=== PATIENT | male | born 1980 | race Caucasian/White ===

== ENCOUNTER 2025-03-14 23:02 | Emergency (ER) | payer OTHER ==
[2025-03-14] MEDS ORDERED: NA CHLORIDE 0.9% 1,000 ML ONE (23:57)
[2025-03-15 00:22] LABS: Absolute Eosinophils 0.1 K/uL (0-0.5); Absolute Lymphocytes (CBC) 2.3 K/uL (0.7-4.9); Absolute Monocytes 0.8 K/uL (0.1-1.3); Absolute Neutrophil 4.6 K/uL (1.8-8.0); Basophils % 0.3 % (0-1.3); Eosinophils % 1.2 % (0-4.4); Hemoglobin 14.7 g/dL (13.6-17.9); Lymphocytes % 29.8 % (15.3-44.8); MCH 32.9 pg (27.0-35.0); MCHC 34.2 g/dL (32.0-36.0); MCV 96.3 fL (80-100); MPV 8.9 fL (7.6-11.3); Monocytes % 10.6 % (3.3-12.3); Neutrophils % 58.1 % (41.7-73.7); Platelets 156 thou/uL (152-406); RBC Red Blood Cell Count 4.46 M/uL (4.33-5.43); Red Cell Distribution Width 13.7 % (12.1-15.2)
[2025-03-15] MEDS ORDERED: POTASSIUM 25 MEQ EFFERV TAB ONE (00:38)
[2025-03-15 00:41] LABS: Specific Gravity 1.023 (1.005-1.030); Sqamous Epithelial None Seen /HPF (None Seen); Urine Bacteria None Seen /HPF (<20); Urine Bilirubin NEGATIVE (Negative); Urine Blood Negative (Negative); Urine Clarity Extremely Turbid (Clear); Urine Color Yellow (Yellow); Urine Culture Reflex Order NOT NEEDED; Urine Glucose NEGATIVE (Negative); Urine Ketones TRACE (Negative); Urine Microscopic Reflex YN ORDER UMIC; Urine Nitrite NEGATIVE (Negative); Urine Protein NEGATIVE (Negative); Urine RBC None Seen /HPF (None Seen); Urine Urobilinogen 2+ (Normal); Urine WBC None Seen /HPF (<5)
--- NOTE | 2025-03-15 01:02 | ER ---
Nurse's Notes [facility] Name: Edmond Amaya Age: 44 yrs Sex: Male : 1980 Arrival Date: 03/14/2025 Time: 23:02 Bed 16 Private MD: Diagnosis: Hypokalemia Presentation: 03/14 23:03 Chief complaint: EMS states: [facility], pain with cp4 urination, and foot locking up. Coronavirus screen: Client denies travel out of the [place] in the last 14 days. At this time, the client does not indicate any symptoms associated with coronavirus-19. Ebola Screen: Patient negative for fever greater than or equal to 101.5 degrees Fahrenheit, and additional compatible Ebola Virus Disease symptoms Patient denies exposure to infectious person. Patient denies travel to an Ebola-affected area in the 21 days before illness onset. No symptoms or risks identified at this time. Initial Sepsis Screen: Does the patient meet any 2 criteria? No. Patient's initial sepsis screen is negative. Does the patient have a suspected source of infection? No. Patient's initial sepsis screen is negative. Risk Assessment: Do you want to hurt yourself or someone else? Patient reports no desire to harm self or others. Onset of symptoms was March 14, 2025. 23:03 Method Of Arrival: EMS: [place] [id number] 23:03 Acuity: JERROD 3 cp4 Triage Assessment: 23:08 Headache History: The patient has had previous headaches and this one is similar to cp4 previous episodes. General: Appears in no apparent distress. comfortable, Behavior is calm, cooperative, appropriate for age. Pain: Complains of pain in headache Pain does not radiate. Pain currently is 5 out of 10 on a pain scale. Pain began 4 hours ago. Pain: Also complains of no other associated symptoms. Neuro: Level of Consciousness is awake, alert, obeys commands, Oriented to person, place, time, situation. Cardiovascular: Patient's skin is warm and dry. Respiratory: Airway is patent Respiratory effort is even, unlabored. GI: No signs and/or symptoms were reported involving the gastrointestinal system. : Reports pain with urination. Derm: No signs and/or symptoms reported regarding the dermatologic system. Musculoskeletal: No signs and/or symptoms reported regarding the musculoskeletal system. Historical: - Allergies: 23:08 PENICILLINS; cp4 23:08 Latex, Natural Rubber; cp4 23:08 Zofran; cp4 - Immunization history:: Adult Immunizations up to date. - Infectious Disease History:: Denies. - Social history:: Smoking status: Patient denies any tobacco usage or history of. Screenin:[address] [facility] ED Fall Risk Assessment (Adult) History of falling in the last 3 months, cp4 including since admission No falls in past 3 months (0 pts) Confusion or Disorientation No (0 pts) Intoxicated or Sedated No (0 pts) Impaired Gait No (0 pts) Mobility Assist Device Used No (0 pt) Altered Elimination No (0 pt) Score/Fall Risk Level 0 - 2 = Low Risk Oriented to surroundings, Maintained a safe environment, Assessed \T\ reinforced patient's understanding of fall precautions, Hourly rounding (assess needs \T\ fall precautionary measures) done. Abuse screen: Denies threats or abuse. Denies injuries from another. Nutritional screening: No deficits noted. Tuberculosis screening: No symptoms or risk factors identified. Assessment: 23:12 Reassessment: No changes from previously documented assessment. cp4 Vital Signs: 23:03 BP 127 / 71; Pulse 57; Resp 18; Temp 98.1; Pulse Ox 100% ; Weight 63.5 kg; Height 5 ft. cp4 10 in. ; Pain 5/10; 05/10 01:54 BP 118 / 73; Pulse 55; Resp 18; Pulse Ox 99% ; cp4 / 23:03 Body Mass Index 20.09 (63.50 kg, 177.8 cm) cp4 05/ 23:03 Pain Scale: Adult cp4 [place] Coma Score: 01:02 Eye Response: spontaneous(4). Motor Response: obeys commands(6). Verbal Response: sb4 oriented(5). Total: 15. ED Course: 03/14 23:03 Patient arrived in ED. cp4 23:03 Jenny Pepper is Primary Nurse. cp4 23:08 Triage completed. cp4 23:08 Arm band placed on right wrist. Patient placed in an exam room, on a stretcher. cp4 23:12 Bed in low position. Call light in reach. Side rails up X2. cp4 23:14 Yuki Myers PA-C is PHCP. sb4 23:14 King Ross MD is Attending Physician. sb4 03/15 00:06 No provider procedures requiring assistance completed. Initial lab(s) drawn, by ga, cp4 sent to lab. Inserted saline lock: 20 gauge in left antecubital area, using aseptic technique. Blood collected. Flushed with 10 mL NS. 01:55 Provided Education on: discharge information. cp4 01:55 intact, bleeding controlled, No redness/swelling at site. Pressure dressing applied. cp4 Administered Medications: 00:06 Drug: NS 0.9% IV 1000 ml IV at 1 bolus Per protocol; to be given as a bolus over 60 cp4 minutes Route: IV; Rate: 1 bolus; Site: left antecubital; 01:56 Follow up: IV Status: Completed infusion cp4 00:41 Drug: Potassium PO Effervescent Tablet 50 mEq PO once; dissolve in 4 ounces of water or lg3 juice Route: PO; 01:56 Follow up: Response: No adverse reaction cp4 Medication: 03/14 23:12 VIS not applicable for this client. cp4 Outcome: 03/15 01:02 Discharge ordered by . sb4 01:55 Discharged to Law Enforcement cp4 01:55 Condition: stable 01:55 Discharge instructions given to patient, Instructed on discharge instructions, follow up and referral plans. Demonstrated understanding of instructions, follow-up care, 01:56 Patient left the ED. cp4 Signatures: Treasure Fung RN RN [email or web address] Yuki Myers PA-C PA-C sb4 Jenny Pepper cp4
--- NOTE | 2025-03-15 01:02 | EDPHYS ---
Physician Documentation [facility] Name: Edmond Amaya Age: 44 yrs Sex: Male : 1980 Arrival Date: 03/14/2025 Time: 23:02 Bed 16 Private MD: ED Physician King Ross HPI: 03/15 00:26 This 44 yrs old Male presents to ER via EMS with complaints of Headache, Pain With sb4 Urination. 00:27 Patient states that he is from [facility]. States he came down here on a sikh sb4 outreach program. States that he was arrested earlier today for reasons he does not understand. States that he is a type I diabetic, was taken to halfway shortly after injecting his insulin. States that he believes he passed out while he was in halfway, he woke up and requested medical care and was released. He is currently complaining of sensitivity to light, visual changes, blood sugar fluctuation, headache, nausea, leg cramping. States he has an extensive medical history, frequents this emergency departments in his hometown. Cannot name all of his home medications or allergies. Historical: - Allergies: 03/14 23:08 PENICILLINS; cp4 23:08 Latex, Natural Rubber; cp4 23:08 Zofran; cp4 - Immunization history:: Adult Immunizations up to date. - Infectious Disease History:: Denies. - Social history:: Smoking status: Patient denies any tobacco usage or history of. ROS: 03/15 00:27 Constitutional: Negative for fever, chills, and weight loss, sb4 MS/extremity: Positive for Muscle cramping, Neuro: Positive for headache, visual changes, All other systems are negative, Exam: 00:27 Constitutional: This is a well developed, well nourished patient who is awake, alert, sb4 and in no acute distress. Head/Face: Normocephalic, atraumatic. Eyes: Extra-ocular motions intact. Periorbital areas with no swelling, redness, or edema. ENT: Mucous membranes moist. Cardiovascular: Regular rate and rhythm with a normal S1 and S2. Respiratory: No increased work of breathing, no retractions or nasal flaring. Skin: Warm, dry with normal turgor. Normal color with no rashes, no lesions, and no evidence of cellulitis. Vital Signs: 03/14 23:03 BP 127 / 71; Pulse 57; Resp 18; Temp 98.1; Pulse Ox 100% ; Weight 63.5 kg; Height 5 ft. cp4 10 in. ; Pain 5/10; 03/15 01:54 BP 118 / 73; Pulse 55; Resp 18; Pulse Ox 99% ; cp4 03/14 23:03 Body Mass Index 20.09 (63.50 kg, 177.8 cm) cp4 03/14 23:03 Pain Scale: Adult cp4 [place] Coma Score: 01:02 Eye Response: spontaneous(4). Motor Response: obeys commands(6). Verbal Response: sb4 oriented(5). Total: 15. MDM: 03/14 23:14 Medical Screening Exam initiated sb4 03/15 01:02 Data reviewed: vital signs, nurses notes, EMS record, lab test result(s), and as a sb4 result, I will discharge patient. Care significantly affected by the following chronic conditions: Diabetes. Counseling: I had a detailed discussion with the patient and/or guardian regarding the historical points, exam findings, and any diagnostic results supporting the discharge/admit diagnosis, lab results, the need for outpatient follow up, for definitive care, to return to the emergency department if symptoms worsen or persist or if there are any questions or concerns that arise at home. 03/14 23:31 Order name: CBC with Diff; Complete Time: 00:23 sb4 03/14 23:31 Order name: BMP; Complete Time: 00:31 sb4 03/14 23:31 Order name: UA Rfx Loi Cult if indicated; Complete Time: 00:41 sb4 03/14 23:31 Order name: IV Start; Complete Time: 00:06 sb4 Administered Medications: 00:06 Drug: NS 0.9% IV 1000 ml IV at 1 bolus Per protocol; to be given as a bolus over 60 cp4 minutes Route: IV; Rate: 1 bolus; Site: left antecubital; :56 Follow up: IV Status: Completed infusion cp4 00:41 Drug: Potassium PO Effervescent Tablet 50 mEq PO once; dissolve in 4 ounces of water or lg3 juice Route: PO; 01:56 Follow up: Response: No adverse reaction cp4 Disposition Summary: 03/15/25 01:02 Discharge Ordered Notes: Location: Home sb4 Problem: new sb4 Symptoms: have improved sb4 Condition: Stable sb4 Diagnosis - Hypokalemia sb4 Followup: sb4 - With: Private Physician - When: 1 week - Reason: Recheck today's complaints, Re-evaluation by your physician Discharge Instructions: - Discharge Summary Sheet sb4 - Potassium Content of Foods sb4 - Hypokalemia sb4 Forms: - Patient Portal Instructions sb4 - Leadership Thank You Letter sb4 Signatures: Dispatcher [employer] EDMS Treasure Fung RN RN lg3 Yuki Myers, PA-C PA-C sb4 Jenny Pepper cp4 Corrections: (The following items were deleted from the chart) 03/14 23:31 23:31 CBC+H.LAB.BRZ ordered. EDMS EDMS 23:31 23:31 BASIC METABOLIC PANEL+C.LAB.BRZ ordered. EDMS EDMS 23:31 23:31 UA Rfx Loi Cult if indicated+U.LAB.BRZ ordered. EDMS EDMS
[2025-03-15 02:29] VITALS: TEMP 98.1
[2025-03-15 02:30] VITALS: BP 118/73; O2SAT 99
== END 2025-03-15 01:56 | disposition home or self-care (01) ==
LOC: ER 23:02
DX: E87.6 Hypokalemia (principal); E10.9 Type 1 diabetes mellitus without complications
CPT/HCPCS: 96361; 85025; 81001; 80048; 36415; 96360; 99284; J7030